=== PATIENT | male | born 1950 | race Caucasian/White ===

== ENCOUNTER → 2020-12-24 | Outpatient (CLI) | payer MEDICARE, OTHER ==
[~2020-12-24] MED LIST: ASPI-630 PO; ATOR40TA PO; GLUC-11 PO; IOHEXOL 180 MG/ML 10 ML VIAL. ONE; METO50TA6 PO; RABE20TA18 PO; VALS320T2 PO; methylPREDNISolone ACETATE 80 MG/ML VIAL. ONE
--- NOTE | 2020-12-24 14:39 | PDOC4 ---
Procedure Note: ICD 10 Code: ICD 10 Code: M54.16 M51.36 M4 8.06 Procedure Note: Patient was consented for lumbar epidural steroid injection with fluoroscopic guidance. Risks were discussed including but not limited to: Bleeding, infection, possibility of epidural hematoma and subsequent neurological compromise, dural puncture, headaches, spinal cord and/or nerve damage, side effects of steroid medication, and poor results regarding pain control. Patient understands and wished to proceed. Procedure is lumbar epidural steroid injection under local anesthetic using giles rile prep and drape at the L4-5 level using C-arm fluoroscopic guidance in both AP and lateral views medications injected is 120 mg Depo-Medrol +10mL preservative-free normal saline and 2 mL contrast- condition at discharge is stable patient tolerated procedure well had no complications. PARESH HUERTA MD Dec 24, 2020 14:39
--- NOTE | 2020-12-24 14:39 | PDOC1 ---
INITIAL PAIN CONSULT DATE OF SERVICE: DOS: DATE: 12/24/20 TIME: 14:32 CHIEF COMPLAINT: Chief Complaint: Low back and bilateral lower extremity pain HISTORY OF PRESENT ILLNESS: 70-year-old male presents history of pain low back bilateral and the bilateral lower extremities for many years worse since about 2018 increasing pain low back bilateral lower extremities radiating across the back into the posterior gluteus posterior thigh lateral thigh anterior thigh medial thighs into the lower legs posteriorly as well. Patient reports is worse with walking standing changing positions better with sitting or laying down generally does not awaken him from sleep at night, patient reports is worse with walking especially first in the morning but with extra activity pain becomes more tolerable until he stops also prolonged standing for more than 10 to 15 minutes is exacerbated the pain significantly he must sit to relieve it. Patient reports is much better with sitting or laying down intermittent intensity sharp stabbing shooting some tingling and numbness as well but mostly pain and throbbing in the back and legs patient has tried physical therapy which he said did help this was to [facility] in [place] in February he still doing the stretching strength exercises also take ibuprofen daily which does decrease the pain by about 30 to 40% as well patient rates his disability rating 0-10 10 being worst is a 3 with family home responsibilities 5 with recreation social activity 1 with social behavior 3 with self-care and 0 with life support activities. Patient did have a MRI scan of the lumbar spine dated November 2019 showing broad-based annular disc bulge L3-4 and L4-5 shows a disc bulge shows a broad-based with protrusion at the right lateral recess with effacement of the right lateral recess and severe bilateral neuroforaminal encroachment L5-S1 shows previous surgery with posterior facet degenerative change and moderate broad-based disc bulging with moderate bilateral neuroforaminal encroachment as well. Patient reports no loss of motor function but significant fatigability and feels that he is off balance most times reports feeling "clumsy." PAST MEDICAL HISTORY: PMH: Arthritis, hypertension, reflux PREVIOUS SURGERIES: Past Surgical Hx: Bilateral cataract extractions, aortic valve replacement 2014, lumbar laminectomy 2005, fractured left leg, 3 arm fractures, tonsillectomy CURRENT MEDICATIONS: Current Meds: Active Scripts Medications Dose Route/Sig Max Daily Dose Days Date Category Cidaflex Tablet (Glucosamine Hcl/Chondr Cortes A Na) 1 Each Tablet 1 Each PO DAILY 12/24/20 Reported Aspirin 81 Mg Tab.chew 1 Tab PO DAILY 12/24/20 Reported Aciphex (Rabeprazole Sodium) 20 Mg Tablet.dr 1 Tab PO DAILY 30 12/24/20 Reported Lipitor (Atorvastatin Calcium) 40 Mg Tablet 1 Tab PO DAILY 12/24/20 Reported Metoprolol Tartrate 50 Mg Tablet 1 Tab PO BID 12/24/20 Reported Diovan (Valsartan) 320 Mg Tablet 320 Mg PO DAILY 12/24/20 Reported ALLERGIES; Allergies: Coded Allergies: No Known Drug Allergies (Unverified , 12/24/20) FAMILY HISTORY: Family Hx: No major medical problems or conditions that he is aware of. SOCIAL HISTORY: Social Hx: Patient is alcohol 3-4 times a year does not smoke not use any illegal illicit recreational drugs is lives with his spouse no children living home lives locally in [facility] and is currently retired. REVIEW OF SYSTEMS: ROS: Positive for those items mentioned in history of present illness, all systems are reviewed, otherwise negative ,and are complete full and well-documented on patient's chart. PHYSICAL EXAM: VS: Blood pressure 140/75 pulse 70 respirations 18 temperature is 98.2 F height is 73 inches weight is 257 pounds PE: PHYSICAL EXAMINATION: GENERAL: The patient is awake, alert, oriented, appropriate, very pleasant demeanor HEENT: Shows normocephalic, atraumatic. Extraocular movements are intact and symmetrical. Oral cavity: Mucous membranes moist and pink. NECK: Shows anterior throat supple without palpable lymphadenopathy noted. Swallow reflex symmetrical. CHEST: Shows normal on inspection. Breath sounds are clear bilaterally, no rales rhonchi or wheeze. HEART: Shows S1, S2 clear. No murmurs auscultated. ABDOMEN: Soft, nontender, nondistended, obese. No palpable organomegaly is noted. No rebound or guarding demonstrated. BACK: Shows spine grossly in the midline. Normal-appearing cervical lordotic curvature. There is slightly increased thoracic kyphosis, some flattening of the lumbar lordotic curvature, with well-healed surgical scar in the midline noted. Lumbar paraspinous muscles show symmetrical on inspection, on palpation shows some moderate tenderness diffusely throughout the upper, middle and lower distribution of the paraspinous muscles bilaterally and also into the lower thoracic paraspinous musculature, firm and tender, but without specific trigger points, without radiation of pain. The patient has good rotational motion of the lumbar spine, both laterally as well as extension and flexion without si gnificant difficulty. No tenderness over the spinous processes, sacrum or sacroiliac regions. EXTREMITIES: Lower extremities show deep tendon reflexes 1+ in the patellar and tendo calcaneus tendons. Motor exam is 5 on a scale of 5 with right dorsiflexion, extension, quadriceps and hamstring flexion and 5/5 on the left. Peripheral pulses are 1+ posterior tibial. No peripheral edema is noted bilaterally. Lower extremities are warm and dry to touch, equal in color and appearance. Straight leg raise noted to be negative bilaterally. Gaenslen's and Saul's maneuvers are negative bilateral as well. The patient is able to stand, stand on his toes that significant difficulty or loss of balance, walks with a slight shuffling gait does not appear to favor the right or left lower extremity significantly and does not use any assistive devices to ambulate. SKIN: Shows warm and dry, good turgor. No edema. No sores, rashes or bruising throughout. IMPRESSION: Impression: 70-year-old male with long history of low back pain status post lumbar decompression 2004 now with increased pain for the past 3 years low back bilateral lower extremities and radicular fashion. MRI scan lumbar spine as noted Hypertension Arthritis Plan: Options were discussed with the patient including conservative management physical therapies interventional techniques. Patient elects interventional techniques. We discussed a lumbar epidural steroid injections description as well as anatomical models to describe the procedure. Risks were discussed including but not limited to: Bleeding, infection, possibility of epidural hematoma and subsequent neurological compromise, dural puncture, headaches, spinal cord and/or nerve damage, side effects of steroid medication, and poor results regarding pain control. Patient understands and wished to proceed. Patient will return to the clinic in approximately 2 weeks for follow-up, was counseled as return appointment, activity level, and side effect to be aware of. Procedure is lumbar epidural steroid injection under local anesthetic using sterile prep and drape at the L4-5 level using C-arm fluoroscopic guidance in both AP and lateral views medications injected is 120 mg Depo-Medrol +10mL preservative-free normal saline and 2 mL contrast- condition at discharge is stable patient tolerated procedure well had no complications. PARESH HUERTA MD Dec 24, 2020 14:38
== END | disposition home or self-care (01) ==
LOC: PNCL 13:25
PROVIDERS: ATTEND Anesthesiology
DX: M51.16 Intervertebral disc disorders with radiculopathy, lumbar region (principal); M48.061 Spinal stenosis, lumbar region without neurogenic claudication; M79.605 Pain in left leg; M79.604 Pain in right leg; I10 Essential (primary) hypertension; M19.90 Unspecified osteoarthritis, unspecified site; K21.9 Gastro-esophageal reflux disease without esophagitis; Z79.82 Long term (current) use of aspirin; Z79.899 Other long term (current) drug therapy; Z98.890 Other specified postprocedural states
CPT/HCPCS: 62323; J1040; Q9965

== ENCOUNTER → 2021-01-23 | Outpatient (CLI) | payer MEDICARE, OTHER ==
[~2021-01-23] MED LIST changes: +methylPREDNISolone ACETATE 40 MG/ML VIAL. ONE
--- NOTE | 2021-01-23 11:27 | PDOC ---
Progress Note - Pain Clinic Date of Service: DOS: DATE: 01/23/21 TIME: 11:24 Diagnosis: Dx: Lumbar radiculopathy with lumbar degenerative disc disease lumbar spinal stenosis and lumbar postlaminectomy syndrome History or Present Illness: HPI: 70-year-old male returns for follow-up status post lumbar epidural steroid injection with approximately 40% improvement of pain still in the low back the bilateral lower extremities posterior gluteus posterior lateral thigh lateral anterior thighs medial thighs medial lower legs patient reports is worse with walking standing but still better and reports still 40% improvement even now several weeks after the injection patient reports has been increase his activity walking doing household activities try with greater ease and comfort sleeping well without disturbance from sleep currently patient rates his pain as a 4 on scale 10 is worse over the past week to an average 0 its least is a 2 today patient reports is dull and tight in the back radiating shooting can be cramping and burning as well in the lower extremities. Patient reports no bowel or bladder incontinence. Patient reports he fell about 1 week ago his leg felt somewhat weak on the left side but is not fallen before or since. Physical Exam: VS: Blood pressure 126/82 pulse 70 respirations 18 temperature is 98.2 F height is 73 inches weight is 258 pounds PE: PHYSICAL EXAMINATION: GENERAL: The patient is awake, alert, oriented, appropriate, very pleasant in demeanor HEENT: Shows normocephalic, atraumatic. Extraocular movements are intact and symmetrical. Oral cavity: Mucous membranes moist and pink. NECK: Shows anterior throat supple without palpable lymphadenopathy noted. Swallow reflex symmetrical. CHEST: Shows normal on inspection. Breath sounds are clear bilaterally, distant but no rales or rhonchi. HEART: Shows S1, S2 clear. No murmurs auscultated. ABDOMEN: Soft, nontender, nondistended, obese. No palpable organomegaly is noted. BACK: Shows spine grossly in the midline. Normal-appearing cervical lordotic curvature. There is increased thoracic kyphosis, some flattening of the lumbar lordotic curvature with well-healed midline surgical scar noted. Lumbar paraspinous muscles show symmetrical on inspection, on palpation shows some moderate tenderness diffusely throughout the upper, middle and lower distribution of the paraspinous muscles without specific trigger points, without radiation of pain. The patient has good rotational motion of the lumbar spine, both laterally as well as extension and flexion without significant difficulty. EXTREMITIES: Lower extremities show deep tendon reflexes 2+ in the patellar and tendo calcaneus tendons. Motor exam is 5 on a scale of 5 with right dorsiflexion, extension, quadriceps and hamstring flexion and 5/5 on the left. Peripheral pulses are 1+ posterior tibial. No peripheral edema is noted bilaterally. Lower extremities are warm and dry. SKIN: Shows warm and dry, good turgor. No edema. No sores, rashes or bruising throughout. Procedure: Procedure: Options were discussed with the patient. Patient chart reviews his current medication regimen updated current review of systems updated today as well. We will proceed with a lumbar epidural steroid injection today with fluoroscopic guidance. Risks were discussed including but not limited to: Bleeding, infection, possibility of epidural hematoma and subsequent neurological compromise, dural puncture, headaches, spinal cord and/or nerve damage, side e ffects of steroid medication, and poor results regarding pain control. Patient understands and wished to proceed. Patient will return to the clinic in approximately 2 weeks for follow-up, was counseled return appointment, activity level, and side effects beware of. Medication Injected: Med Injected: Procedure is lumbar epidural steroid injection under local anesthetic using sterile prep and drape at the L4-5 level using C-arm fluoroscopic guidance in both AP and lateral views medications injected is 120 mg Depo-Medrol +10mL preservative-free normal saline and 2 mL contrast- condition at discharge is stable patient tolerated procedure well had no complications. Condition at Discharge: Condition at Discharge: Condition at discharge is stable, patient tolerated procedure well had no complications. PARESH HUERTA MD Jan 23, 2021 11:27
--- NOTE | 2021-01-23 11:27 | PDOC4 ---
Procedure Note: ICD 10 Code: ICD 10 Code: M54.16 M4 8.06 M51.36 M 96.1 Procedure Note: Patient was consented for lumbar epidural steroid injection with fluoroscopic guidance. Risks were discussed including but not limited to: Bleeding, infection, possibility of epidural hematoma and subsequent neurological compromise, dural puncture, headaches, spinal cord and/or nerve damage, side effects of steroid medication, and poor results regarding pain control. Patient understands and wished to proceed. Procedure is lumbar epidural steroid injection under local anesthetic using sterile prep and drape at the L4-5 level using C-arm fluoroscopic guidance in both AP and lateral views medications injected is 120 mg Depo-Medrol +10mL preservative-free normal saline and 2 mL contrast- condition at discharge is stable patient tolerated procedure well had no complications. PARESH HUERTA MD Jan 23, 2021 11:27
== END | disposition home or self-care (01) ==
LOC: PNCL 10:12
PROVIDERS: ATTEND Anesthesiology
DX: M51.16 Intervertebral disc disorders with radiculopathy, lumbar region (principal); M48.061 Spinal stenosis, lumbar region without neurogenic claudication; M96.1 Postlaminectomy syndrome, not elsewhere classified; Z79.82 Long term (current) use of aspirin; Z79.899 Other long term (current) drug therapy
CPT/HCPCS: 62323; J1030; J1040; Q9965